=== PATIENT | male | born 1990 | race Caucasian/White ===

== ENCOUNTER 2016-10-13 07:09 | Emergency (ER) | payer OTHER ==
[2016-10-13] MEDS ORDERED: HYDROcodone/ACETAMIN 5-325 MG* 1 TAB PO ONE ×2 (07:32→08:47)
[2016-10-13] MEDS ORDERED: cefTRIAXone VIAL(*) 1,000 MG VIAL IM ONE (07:53)
[2016-10-13] MEDS ORDERED: Lidocaine 1% MPF* 2 ML VIAL ONE (07:56)
[2016-10-13] MEDS ORDERED: Dexamethasone IV* 4 MG/ML 1 ML (4 MG) IM ONE ×2 (08:05→08:10)
[2016-10-13] MEDS ORDERED: predniSONE TAB* 20 MG PO ONE (08:21)
--- NOTE | 2016-10-13 09:04 | UC ---
[facility] Adam, scribed for Nicolasa Bush DO on 10/13/16 at 0729 . Dental HPI - HPI Summary HPI Summary: Pt is a 26 year old male presenting with dental pain in his left lower jaw. He had 2 teeth extracted by a dentist in [place] 3 days ago and he is concerned that the area is infected. He currently presents with throbbing pain and swelling in his left lower jaw. He also c/o mild sore throat. He states that when he pushes on his gums, pus comes out. He is unable to completely open his mouth. He has been unable to open his mouth completely since Friday, the day after the procedure. However, he states that his ability to open his mouth has increased since Friday, it has not gotten worse. Yesterday is the day he started to feel as though he had an infection. He felt like he had a fever and was having cold sweats starting at approximately 12:00. He went to sleep at 23: 00 last night but woke up at 03:30 because of the pain. He does not believe he had a fever anymore this morning. Pt denies any N/V/D, abdominal pain, OQUENDO, or rashes. Pt was not on abx before the procedure and he was not given any abx (or pain medication) afterwards. He denies any PMHx or FMHx. He denies any hx of valvular disease or murmur. He is a former smoker. - History of Current Complaint Stated Complaint: DENTAL PAIN Hx Obtained From: Patient Onset/Duration: Sudden Onset, Lasting Days, Still Present Severity: Moderate Pain Intensity: 6 Pain Scale Used: 0-10 Numeric Aggravating: Chewing Alleviating: Nothing Related History: Discharge, Swelling - Allergies/Home Medications Allergies/Adverse Reactions: Allergies Allergy/AdvReac Type Severity Reaction Status Date / Time amoxicillin Allergy Severe Hives Uncoded 10/13/16 07:29 Home Medications: Home Medications Ibuprofen [Ibuprofen 200 MG] 10/13/16 [History] PMH/Surg Hx/FS Hx/Imm Hx Previously Healthy: Yes Cardiovascular History Of: Denies: Cardiac Disorders, Hypertension, Pacemaker/ICD, Myocardial Infarction , Congestive Heart Failure, Atrial Fibrillation, Deep Vein Thrombosis, Bleeding Disorders Respiratory History Of: Denies: COPD, Asthma, Bronchitis, Pneumonia, Pulmonary Embolism - Family History Known Family History: Positive: None - Pt denies any FMHx Negative: Cardiac Disease, Hypertension, Diabetes - Social History Occupation: Employed Full-time Lives: Alone Alcohol Use: None Substance Use Type: None Smoking Status (MU): Former Smoker Review of Systems Constitutional: Fever, Other - Cold sweats Skin: Negative ENT: Dental Pain - Left lower, Sore Throat - mild Gastrointestinal: Negative Musculoskeletal: Edema - Left lower jaw Neurological: Negative All Other Systems Reviewed And Are Negative: Yes Physical Exam Triage Information Reviewed: Yes Appearance: Well-Appearing, No Pain Distress, Well-Nourished Vital Signs: Initial Vital Signs Temp 99.1 F 10/13/16 07:23 Pulse 78 10/13/16 07:23 Resp 16 10/13/16 07:23 BP 134/70 10/13/16 07:23 Pulse Ox 99 10/13/16 07:23 Vital Signs Reviewed: Yes Eyes: Positive: Conjunctiva Clear. Negative: Discharge ENT: Positive: Hearing grossly normal, TMs normal, Trismus. Negative: Tonsillar swelling, Tonsillar exudate, Muffled/hoarse voice Dental: Positive: Other: - Extraction site is swollen. Purulent drainage and halitosis is noted. Patients jaw is very tender to palpation. Neck exam: Normal Neck: Positive: Supple, Other: - Lymphadenopathy on the left Respiratory: Positive: Lungs clear, Normal breath sounds, No respiratory distress, No accessory muscle use Cardiovascular: Positive: RRR, No Murmur Abdomen Description: Positive: Nontender, Soft. Negative: CVA Tenderness (R), CVA Tenderness (L), Distended, Guarding Bowel Sounds: Positive: Present Musculoskeletal Exam: Normal Neurological: Positive: Alert, Muscle Tone Normal Psychological Exam: Normal Psychological: Positive: Age Appropriate Behavior Skin Exam: Normal Skin: Positive: Other - Warm, dry, normal color Dental Complaint Course/Dx - Differential Dx/Diagnosis Differential Diagnosis/Dx: Dental Abscess, Post Extraction Pain Provider Diagnoses: dental infection - Physician Notification/Consults Discussed Patient Care With: Dr. Rodriguez at 08:05. Discharge - Discharge Plan Condition: Stable Disposition: HOME Prescriptions: Clindamycin Cap(NF) [Cleocin 300 mg Cap(NF)] 300 mg PO QID #28 cap HYDROcodone/ACETAMIN 5-325 MG* [[place] 5-325 TAB*] 1 tab PO Q6H PRN #14 tab MDD 4 TABS PRN Reason: Pain predniSONE TAB* [Deltasone TAB*] 40 mg PO DAILY #8 tab Patient Education Materials: Dental Abscess (ED) Referrals: Chris Vera MD [Primary Care Provider] - If Needed Additional Instructions: We are sorry that you've had such a difficult experience with your dental procedure. We are concerned that you are unable to open your mouth. That could be a symptom of a more serious infection in the deep spaces of the neck, but given your history and physical exam it would appear that the reason you can't open your mouth is swelling around the tooth putting pressure on the muscles of your jaw. We have already started treating the infection by giving you a shot of Rocephin here in the clinic. We have offered you an injected steroid, to help bring down the swelling. You have refused this injection. So instead we will give you an oral steroid. We will also send you home with an oral antibiotic, we have given you the first dose here. Because not being able to open your mouth can be a symptom of a more serious infection, we plan to give you a call this evening to check on you and make sure you are not getting worse. However, if you suspect that you are getting worse at any time, you should go to the ER immediately. It is very important that you are seen by your dentist tomorrow. ANTIBIOTIC THERAPY: Clindamycin You have been given an antibiotic prescription. It's important that you take all the medication, unless instructed otherwise by your physician. Failure to complete the entire course can result in relapse of your condition. Common side effects of antibiotics include nausea, intestinal cramping, or diarrhea. Women may develop vaginal yeast infections, and babies can get yeast (thrush) in the mouth following the use of antibiotics. Contact your physician if you develop significant side effects from this medication. Allergy to this antibiotic can result in hives, wheezing, faintness, or itching. If symptoms of allergy occur, stop the medication and call the doctor. ANY TIME YOU TAKE AN ANTIBIOTIC, IT IS IMPORTANT TO REPLENISH THE BODY'S BALANCE OF "GOOD" BACTERIA BY EATING HIGH QUALITY CULTURED FOOD SUCH YOGURT, SAURKRAUT OR HERIBERTO CHI AND/OR TAKING A PROBIOTIC SUPPLEMENT. ORAL NARCOTIC MEDICATION: You have been given a prescription for pain control. This medication is a narcotic. It's best taken with food, as nausea can result if taken on an empty stomach. Don't operate machinery or drive within six hours of taking this medication. Do not combine this medicine with alcohol, or with any medication which can cause sedation (such as cold tablets or sleeping pills) unless you get permission from the physician. Narcotics tend to cause constipation. If possible, drink plenty of fluids and eat a diet high in fiber and fruits. FOLLOW UP You should be seen by your dentist tomorrow. The documentation as recorded by the [facility] accurately reflects the service I personally performed and the decisions made by me, Nicolasa Bush DO.
== END 2016-10-13 08:58 | disposition home or self-care (01) ==
LOC: UCEAST 07:09
DX: K04.7 Periapical abscess without sinus (principal)
CPT/HCPCS: 96372; 99202; G0463; J0696; J1100; J7512